=== PATIENT | male | born 1965 | race Hispanic/Latino ===

== ENCOUNTER 2016-12-27 09:08 | Emergency (ER) | payer SELFPAY | END 2016-12-27 09:32 | disposition home or self-care (01) | LOC: NAV ERS 09:08 | DX: S29.012A Strain of muscle and tendon of back wall of thorax, initial encounter (principal); Z79.84 Long term (current) use of oral hypoglycemic drugs; Z79.899 Other long term (current) drug therapy; X58.XXXA Exposure to other specified factors, initial encounter | CPT/HCPCS: 99001; 99283 ==